=== PATIENT | female | born 1940 | race Two or more races ===

== ENCOUNTER → 2017-09-22 | Outpatient (CLI) | payer MEDICARE, OTHER ==
[2017-09-22 11:13] LABS: HEMATOCRIT 31.2 % (36-46); HEMOGLOBIN 10.3 g/dL (12.0-16.0)
[2017-09-22 11:45] LABS: % IRON SATURATION 11.2 % (22-44)
[2017-09-22 11:52] LABS: FOLATE SERUM 9.6 ng/mL (5.4-)
[2017-09-22 12:04] LABS: CALCIUM, TOTAL 10.4 mg/dL (8.8-10.5); CREATININE 4.67 mg/dL (0.60-1.30); POTASSIUM 4.8 mmol/L (3.5-5.1)
== END | disposition home or self-care (01) ==
LOC: LABPV 08:11
PROVIDERS: ATTEND Internal Medicine Nephrology
DX: I12.0 Hypertensive chronic kidney disease with stage 5 chronic kidney disease or end stage renal disease (principal); N18.5 Chronic kidney disease, stage 5
CPT/HCPCS: 82607; 82728; 82746; 83540; 83550; 84466; 85014; 85018

== ENCOUNTER → 2017-11-14 | Outpatient (CLI) | payer MEDICARE, OTHER ==
[2017-11-14 10:04] LABS: HEMATOCRIT 30.2 % (36-46); HEMOGLOBIN 10.1 g/dL (12.0-16.0)
[2017-11-14 10:15] LABS: CALCIUM, TOTAL 10.5 mg/dL (8.8-10.5); CREATININE 5.95 mg/dL (0.60-1.30); PHOSPHORUS 4.8 mg/dL (2.5-4.9); POTASSIUM 4.8 mmol/L (3.5-5.1)
== END | disposition home or self-care (01) ==
LOC: LABPV 08:19
PROVIDERS: ATTEND Internal Medicine Nephrology
DX: I12.0 Hypertensive chronic kidney disease with stage 5 chronic kidney disease or end stage renal disease (principal); N18.5 Chronic kidney disease, stage 5; E55.9 Vitamin D deficiency, unspecified
CPT/HCPCS: 82306; 84100; 85014; 85018

== ENCOUNTER 2017-11-25 15:07 | Inpatient (IN) | payer MEDICARE, OTHER ==
[~2017-11-25] VITALS: Ht 152.4 cm; Wt 52.8 kg
[2017-11-25 15:41] LABS: BASOPHILS % (AUTO) 0.7 % (0.0-2.0); EOSINOPHILS % (AUTO) 0.5 % (1.0-6.0); HEMATOCRIT 29.7 % (36-46); HEMOGLOBIN 10.2 g/dL (12.0-16.0); LYMPHOCYTES # (AUTO) 0.6 K/uL (1.0-4.8); LYMPHOCYTES % (AUTO) 6.4 % (22.0-44.0); MEAN CORPUSCULAR HEMOGLOBIN 26.5 pg (26.0-34.0); MEAN CORPUSCULAR HGB CONC 34.3 G/dL (31.0-37.0); MEAN CORPUSCULAR VOLUME 78 fL (80-100); MONOCYTES # (AUTO) 0.6 K/uL (0.1-1.0); MONOCYTES % (AUTO) 6.3 % (2.0-9.0); NEUTROPHILS # (AUTO) 8.2 K/uL (1.8-7.7); PLATELET COUNT (AUTO) 332 K/uL (150-450); RED BLOOD CELL COUNT(AUTO) 3.84 MIL/uL (4.00-5.20); RED CELL DISTRIBUTION WIDTH 17.7 % (11.5-14.5)
[2017-11-25 15:45] LABS: NEUTROPHILS % (AUTO) 86.1 % (40.0-70.0)
[2017-11-25 15:56] LABS: ALBUMIN 2.9 g/dL (3.4-5.0); BILIRUBIN,TOTAL 0.3 mg/dL (0.1-1.0); CREATININE 5.07 mg/dL (0.60-1.30); POTASSIUM 3.7 mmol/L (3.5-5.1); TOTAL PROTEIN, SERUM 7.6 g/dL (6.4-8.2)
[2017-11-25 16:25] LABS: PLATELET MORPHOLOGY COMMENT NORMAL
[2017-11-25] MEDS ORDERED: HEPARIN SODIUM,PORCINE 1,000 UNITS/ML VIAL IVP ONE (17:09)
[2017-11-25] MEDS ORDERED: CALCITONIN,SALMON,SYNTHETIC 200 UNITS/SPRAY 3.7 ML BOTTLE NASAL ONE (18:45)
[2017-11-25] MEDS ORDERED: SODIUM CHLORIDE 0.9% 1,000 ML IV ONE (18:45)
[2017-11-25] MEDS ORDERED: AMLO-511 PO (18:56)
[2017-11-25] MEDS ORDERED: VITAD1000 PO (18:56)
[2017-11-25] MEDS ORDERED: SODI650T PO (18:56)
[2017-11-25] MEDS ORDERED: PHOSLOC PO (18:56)
[2017-11-25] MEDS ORDERED: FERR-89 PO (18:56)
[2017-11-25] MEDS ORDERED: MAGNESIUM HYDROXIDE SUSPENSION 30 ML UDCUP PO PRN (20:00)
[2017-11-25] MEDS ORDERED: BISACODYL 10 MG RECTAL RECTAL SUPPOSITORY PR PRN (20:00)
[2017-11-25] MEDS ORDERED: IPRATROPIUM BROMIDE 0.5 MG/2.5 ML NEB SOLUTION NEB PRN (20:00)
[2017-11-25] MEDS ORDERED: ALBUTEROL SULFATE 2.5 MG/0.5 ML NEB SOLUTION NEB PRN (20:00)
[2017-11-25] MEDS ORDERED: ZOLPIDEM TARTRATE 5 MG TABLET PO PRN (20:00)
[2017-11-25] MEDS ORDERED: OxyCODONE HCL/ACETAMINOPHEN 5-325 MG TABLET PO PRN (20:00)
[2017-11-25 21:01] LABS: APPEARANCE,URINE CLEAR (CLEAR); BILIRUBIN,URINE NEGATIVE (NEGATIVE); GLUCOSE, URINE (UA) 100 mg/dL (NEGATIVE); KETONES,URINE NEGATIVE (NEGATIVE); LEUKOCYTE ESTERASE ,URINE NEGATIVE (NEGATIVE); NITRATE,URINE NEGATIVE (NEGATIVE); OCCULT BLOOD,URINE SMALL (NEGATIVE); PH,URINE 6.5 (5.0-8.0); PROTEIN,URINE SEE CONFIRM (NEGATIVE); UROBILINOGEN,URINE 0.2 mg/dL (<=1.0)
[2017-11-25 21:09] LABS: BACTERIA,URINE Rare /HPF (None Seen); SULFOSALICYLIC ACID,URINE 1+ (Negative); WBC,URINE 0-2 /HPF (0-5)
[2017-11-25 22:33] VITALS: BP 130/58
[2017-11-26 04:11] VITALS: BP 108/53
[2017-11-26 06:38] LABS: BASOPHILS % (AUTO) 0.9 % (0.0-2.0); EOSINOPHILS % (AUTO) 1.1 % (1.0-6.0); HEMATOCRIT 29.9 % (36-46); HEMOGLOBIN 10.4 g/dL (12.0-16.0); LYMPHOCYTES # (AUTO) 0.7 K/uL (1.0-4.8); LYMPHOCYTES % (AUTO) 8.5 % (22.0-44.0); MEAN CORPUSCULAR HEMOGLOBIN 26.6 pg (26.0-34.0); MEAN CORPUSCULAR HGB CONC 34.7 G/dL (31.0-37.0); MEAN CORPUSCULAR VOLUME 77 fL (80-100); MONOCYTES # (AUTO) 0.6 K/uL (0.1-1.0); MONOCYTES % (AUTO) 7.3 % (2.0-9.0); NEUTROPHILS # (AUTO) 6.8 K/uL (1.8-7.7); NEUTROPHILS % (AUTO) 82.2 % (40.0-70.0); PLATELET COUNT (AUTO) 318 K/uL (150-450); RED CELL DISTRIBUTION WIDTH 17.6 % (11.5-14.5)
[2017-11-26 07:33] LABS: ALBUMIN 2.7 g/dL (3.4-5.0); BILIRUBIN,TOTAL 0.3 mg/dL (0.1-1.0); CREATININE 5.08 mg/dL (0.60-1.30); MAGNESIUM 1.9 mg/dL (1.80-2.40); PHOSPHORUS 4.7 mg/dL (2.5-4.9); POTASSIUM 3.7 mmol/L (3.5-5.1); TOTAL PROTEIN, SERUM 7.2 g/dL (6.4-8.2)
[2017-11-26 08:18] LABS: CALCIUM, TOTAL 13.7 mg/dL (8.8-10.5)
[2017-11-26] MEDS: PANTOPRAZOLE SODIUM 40 MG DR TABLET PO SCH (09:08)
[2017-11-26 09:52] VITALS: BP 125/63
[2017-11-26] MEDS ORDERED: CALCITONIN,SALMON,SYNTHETIC 200 UNITS/SPRAY 3.7 ML BOTTLE NASAL ONE (11:30)
[2017-11-26 11:45] VITALS: BP 140/66
[2017-11-26] MEDS ORDERED: IOHEXOL 240 MG/ML 50 ML VIAL ONE (13:08)
[2017-11-26] MEDS ORDERED: LIDOCAINE HCL/PF 1% 30 ML VIAL ONE (13:09)
[2017-11-26] MEDS ORDERED: HEPARIN SODIUM 1000 UNITS/NS 500 ML ONE ×2 (13:09→15:03)
[2017-11-26 13:43] LABS: PROTHROMBIN TIME 10.2 SEC (9.4-11.6)
[2017-11-26] MEDS ORDERED: FentaNYL CITRATE-PF 100 MCG/2 ML VIAL ONE (14:52)
[2017-11-26] MEDS ORDERED: NALOXONE HCL 0.4 MG/ML VIAL ONE (14:53)
[2017-11-26] MEDS ORDERED: MIDAZOLAM HCL 2 MG/2 ML VIAL ONE (14:53)
[2017-11-26] MEDS ORDERED: HEPARIN SODIUM,PORCINE 1,000 UNITS/ML 10 ML VIAL ONE (14:53)
[2017-11-26] MEDS ORDERED: FLUMAZENIL 0.1 MG/ML 5 ML VIAL IVP ONE (14:53)
[2017-11-26] MEDS ORDERED: CeFAZolin 1 GM/DEXTROSE 0 ML IV ONE (15:12)
[2017-11-26 15:47] VITALS: BP 118/57
[2017-11-26] MEDS ORDERED: ALTEPLASE 2 MG/VIAL IVCATH ONE (16:30)
[2017-11-26 19:40] VITALS: BP 121/62
[2017-11-27 00:07] VITALS: BP 110/58
[2017-11-27 04:32] VITALS: BP 109/54
[2017-11-27 07:41] VITALS: BP 117/61
[2017-11-27] MEDS: PANTOPRAZOLE SODIUM 40 MG DR TABLET PO SCH (09:18)
[2017-11-27] MEDS: VITAMIN B COMP/VIT C/FOLIC ACID CAPSULE PO SCH (09:18)
[2017-11-27 09:34] LABS: BASOPHILS % (AUTO) 0.6 % (0.0-2.0); EOSINOPHILS % (AUTO) 0.9 % (1.0-6.0); HEMATOCRIT 27.4 % (36-46); HEMOGLOBIN 9.4 g/dL (12.0-16.0); LYMPHOCYTES # (AUTO) 0.4 K/uL (1.0-4.8); LYMPHOCYTES % (AUTO) 5.1 % (22.0-44.0); MEAN CORPUSCULAR HEMOGLOBIN 26.8 pg (26.0-34.0); MEAN CORPUSCULAR HGB CONC 34.2 G/dL (31.0-37.0); MEAN CORPUSCULAR VOLUME 78 fL (80-100); MONOCYTES # (AUTO) 0.5 K/uL (0.1-1.0); MONOCYTES % (AUTO) 6.6 % (2.0-9.0); PLATELET COUNT (AUTO) 283 K/uL (150-450); RED CELL DISTRIBUTION WIDTH 17.2 % (11.5-14.5)
[2017-11-27 09:37] LABS: NEUTROPHILS % (AUTO) 86.8 % (40.0-70.0)
[2017-11-27 09:42] LABS: CALCIUM, TOTAL 11.2 mg/dL (8.8-10.5); CREATININE 4.17 mg/dL (0.60-1.30)
[2017-11-27 09:48] LABS: ALBUMIN 2.4 g/dL (3.4-5.0); BILIRUBIN,TOTAL 0.2 mg/dL (0.1-1.0); TOTAL PROTEIN, SERUM 6.8 g/dL (6.4-8.2)
[2017-11-27] MEDS ORDERED: POTASSIUM CHLORIDE 20 MEQ ER TABLET PO ONE (10:00)
[2017-11-27 11:46] VITALS: BP 104/55
[2017-11-27 15:31] VITALS: BP 116/58
[2017-11-27 20:25] VITALS: BP 123/65
[2017-11-27] MEDS: ACETAMINOPHEN 325 MG TABLET PO PRN (23:42)
[2017-11-28] VITALS (7 sets, daily range): BP systolic 101–125; BP diastolic 52–96
[2017-11-28] MEDS ORDERED: SODIUM CHLORIDE 0.9% 2,000 ML IV ONE (06:50)
[2017-11-28 06:55] LABS: CALCIUM, TOTAL 11.3 mg/dL (8.8-10.5); CREATININE 4.82 mg/dL (0.60-1.30); POTASSIUM 4.4 mmol/L (3.5-5.1)
[2017-11-28] MEDS: VITAMIN B COMP/VIT C/FOLIC ACID CAPSULE PO SCH (10:20)
[2017-11-28] MEDS: PANTOPRAZOLE SODIUM 40 MG DR TABLET PO SCH (10:20)
[2017-11-28] MEDS: ACETAMINOPHEN 325 MG TABLET PO PRN (20:16)
[2017-11-29 05:11] VITALS: BP 106/51
[2017-11-29 07:44] VITALS: BP 116/57
[2017-11-29] MEDS: VITAMIN B COMP/VIT C/FOLIC ACID CAPSULE PO SCH (08:00)
[2017-11-29] MEDS: PANTOPRAZOLE SODIUM 40 MG DR TABLET PO SCH (08:00)
[2017-11-29] MEDS ORDERED: EPOETIN ALFA 10,000 UNITS/ML 2 ML VIAL SQ SCH (09:00)
[2017-11-29 10:10] LABS: CALCIUM, TOTAL 10.7 mg/dL (8.8-10.5); CREATININE 3.88 mg/dL (0.60-1.30); POTASSIUM 3.7 mmol/L (3.5-5.1)
[2017-11-29] MEDS ORDERED: SODIUM CHLORIDE 0.9% 1,000 ML IV ONE (10:34)
[2017-11-29 11:49] VITALS: BP 111/63
[2017-11-29 16:36] VITALS: BP 103/54
[2017-11-29 19:52] VITALS: BP 115/54
[2017-11-29 23:44] VITALS: BP 112/58
[2017-11-30 04:32] VITALS: BP 105/55
[2017-11-30 06:57] VITALS: BP 101/57
[2017-11-30] MEDS: VITAMIN B COMP/VIT C/FOLIC ACID CAPSULE PO SCH (08:19)
[2017-11-30] MEDS: PANTOPRAZOLE SODIUM 40 MG DR TABLET PO SCH (08:19)
[2017-11-30 11:24] VITALS: BP 113/53
[2017-11-30 15:31] VITALS: BP 118/57
[2017-11-30 19:46] VITALS: BP 103/53
[2017-12-01 00:06] VITALS: BP 113/58
[2017-12-01 04:10] VITALS: BP 111/55
[2017-12-01 06:59] LABS: CREATININE 4.85 mg/dL (0.60-1.30); POTASSIUM 4.5 mmol/L (3.5-5.1)
[2017-12-01 07:35] VITALS: BP 97/52
[2017-12-01] MEDS: VITAMIN B COMP/VIT C/FOLIC ACID CAPSULE PO SCH (09:57)
[2017-12-01] MEDS: PANTOPRAZOLE SODIUM 40 MG DR TABLET PO SCH (09:57)
[2017-12-01 11:20] VITALS: BP 112/57
[2017-12-01 15:46] VITALS: BP 123/59
== END 2017-12-01 17:40 | disposition home or self-care (01) | DRG 640 ==
LOC: EMS 15:08 → 5N 20:53
PROVIDERS: ADMIT Internal Medicine; ATTEND Internal Medicine
PROC: 5A1D70Z Performance of Urinary Filtration, Intermittent, Less than 6 Hours Per Day (ICD-10-PCS; principal; 2017-11-26)
PROC: 5A1D70Z Performance of Urinary Filtration, Intermittent, Less than 6 Hours Per Day (ICD-10-PCS; 2017-11-28)
PROC: 5A1D70Z Performance of Urinary Filtration, Intermittent, Less than 6 Hours Per Day (ICD-10-PCS; 2017-11-29)
DX: E83.52 Hypercalcemia (principal); N18.6 End stage renal disease; E87.1 Hypo-osmolality and hyponatremia; I12.0 Hypertensive chronic kidney disease with stage 5 chronic kidney disease or end stage renal disease; R10.9 Unspecified abdominal pain; D63.1 Anemia in chronic kidney disease; E11.22 Type 2 diabetes mellitus with diabetic chronic kidney disease; E78.5 Hyperlipidemia, unspecified; R94.8 Abnormal results of function studies of other organs and systems; Z83.3 Family history of diabetes mellitus; Z82.49 Family history of ischemic heart disease and other diseases of the circulatory system; Z99.2 Dependence on renal dialysis; Z84.1 Family history of disorders of kidney and ureter
CPT/HCPCS: 74176; 82306; 83735; 83970; 84100; 87081; 87340; 93005; 96360; 99285; J0690; J0885; J1644; J2250; J2310; J2997; J3010; J3490; J7030; Q9966

== ENCOUNTER → 2017-12-03 | Outpatient (CLI) | payer MEDICARE, OTHER ==
[~2017-12-03] MED LIST: AMLO-511 PO; FERR-89 PO; PHOSLOC PO; SODI650T PO; VITAD1000 PO
== END | disposition home or self-care (01) ==
LOC: RADPV 08:42
PROVIDERS: ATTEND Internal Medicine Nephrology
DX: I70.0 Atherosclerosis of aorta (principal); M48.54XA Collapsed vertebra, not elsewhere classified, thoracic region, initial encounter for fracture; I12.0 Hypertensive chronic kidney disease with stage 5 chronic kidney disease or end stage renal disease; N18.6 End stage renal disease; Z99.2 Dependence on renal dialysis

== ENCOUNTER → 2017-12-08 | Outpatient (CLI) | payer MEDICARE, OTHER ==
[~2017-12-08] MED LIST changes: +IOVERSOL 350 MG/ML 100 ML VIAL ONE
[2017-12-08 10:53] LABS: HEMOGLOBIN 7.8 g/dL (12.0-16.0)
[2017-12-08 11:20] LABS: CREATININE 4.4 mg/dL (0.60-1.30); POTASSIUM 4.3 mmol/L (3.5-5.1)
[2017-12-08 11:42] LABS: CALCIUM, TOTAL 11.9 mg/dL (8.8-10.5)
== END | disposition home or self-care (01) ==
LOC: LABPV 08:43
PROVIDERS: ATTEND Internal Medicine Nephrology
DX: I12.9 Hypertensive chronic kidney disease with stage 1 through stage 4 chronic kidney disease, or unspecified chronic kidney disease (principal); N18.5 Chronic kidney disease, stage 5; E11.22 Type 2 diabetes mellitus with diabetic chronic kidney disease
CPT/HCPCS: 85014; 85018

== ENCOUNTER 2017-12-09 16:55 | Inpatient (IN) | payer MEDICARE, OTHER ==
[~2017-12-09] VITALS: Ht 157.5 cm; Wt 56.8 kg
[~2017-12-09 16:55] MED LIST changes: -IOVERSOL 350 MG/ML 100 ML VIAL ONE
[2017-12-09] MEDS ORDERED: SODIUM CHLORIDE 0.9% 500 ML IV ONE (17:30)
[2017-12-09 18:01] LABS: HEMATOCRIT 22.2 % (36-46); HEMOGLOBIN 7.4 g/dL (12.0-16.0); MEAN CORPUSCULAR HEMOGLOBIN 26.4 pg (26.0-34.0); MEAN CORPUSCULAR HGB CONC 33.4 G/dL (31.0-37.0); MEAN CORPUSCULAR VOLUME 79 fL (80-100); PLATELET COUNT (AUTO) 292 K/uL (150-450); RED BLOOD CELL COUNT(AUTO) 2.81 MIL/uL (4.00-5.20); RED CELL DISTRIBUTION WIDTH 17.3 % (11.5-14.5)
[2017-12-09 18:10] LABS: ALANINE AMINOTRANSFERASE 12 U/L (12-78); ALBUMIN 2.4 g/dL (3.4-5.0); ALKALINE PHOSPHATASE 79 U/L (46-116); ANION GAP 11 mmol/L (8-16); ASPARTATE AMINOTRANSFERASE 11 U/L (15-37); BILIRUBIN,TOTAL 0.3 mg/dL (0.1-1.0); CARBON DIOXIDE 25 mmol/L (22-29); CHLORIDE 97 mmol/L (98-107); CREATININE 5.66 mg/dL (0.60-1.30); GLOMERULAR FILTR. RATE CALC 7 mL/min (>60); GLUCOSE,RANDOM 129 mg/dL (70-110); POTASSIUM 4.2 mmol/L (3.5-5.1); SODIUM SERUM 133 mmol/L (136-145); TOTAL PROTEIN, SERUM 6.9 g/dL (6.4-8.2); UREA NITROGEN, BLOOD 48 mg/dL (7-18)
[2017-12-09 18:15] LABS: CALCIUM, TOTAL 12.4 mg/dL (8.8-10.5)
[2017-12-09 18:21] LABS: LACTIC ACID 2.4 mmol/L (0.4-2.0)
[2017-12-09 18:33] LABS: BAND NEUTROPHILS % (MANUAL) 41 % (0-5); EOSINOPHILS % (MANUAL) 1 % (1-6); LYMPHOCYTES % (MANUAL) 3 % (22-44); MONOCYTES % (MANUAL) 3 % (2-9); SEGMENTED NEUTROPHILS % 52 % (40-70)
[2017-12-09 18:51] LABS: APPEARANCE,URINE CLOUDY (CLEAR); BILIRUBIN,URINE NEGATIVE (NEGATIVE); GLUCOSE, URINE (UA) 100 mg/dL (NEGATIVE); KETONES,URINE NEGATIVE (NEGATIVE); LEUKOCYTE ESTERASE ,URINE NEGATIVE (NEGATIVE); NITRATE,URINE NEGATIVE (NEGATIVE); OCCULT BLOOD,URINE SMALL (NEGATIVE); PH,URINE 6.5 (5.0-8.0); PROTEIN,URINE SEE CONFIRM (NEGATIVE); UROBILINOGEN,URINE 0.2 mg/dL (<=1.0)
[2017-12-09 19:06] LABS: SULFOSALICYLIC ACID,URINE 3+ (Negative)
[2017-12-09 19:08] LABS: BACTERIA,URINE Few /HPF (None Seen)
[2017-12-09 19:09] LABS: AMORPHOUS SEDIMENT,UR Few /LPF (None Seen); COARSE GRANULAR CASTS,URINE 0-2 /LPF (None Seen); SQUAMOUS EPITHELIAL CELL,UR None Seen /LPF (None Seen)
[2017-12-09] MEDS ORDERED: VANCOMYCIN HCL 1 GM/D5% WATER 200 ML IV ONE (19:45)
[2017-12-09] MEDS ORDERED: PIPERACILLIN/TAZO 3.375 GM/D5W 50 ML IV ONE (19:45)
[2017-12-09] MEDS ORDERED: ACETAMINOPHEN 325 MG TABLET PO PRN ×2 (20:00→20:45)
[2017-12-09] MEDS ORDERED: ONDANSETRON HCL 4 MG/2 ML VIAL IVP PRN ×2 (20:00→20:45)
[2017-12-09] MEDS ORDERED: ALBUTEROL SULFATE 2.5 MG/0.5 ML NEB SOLUTION NEB PRN (20:45)
[2017-12-09] MEDS ORDERED: BISACODYL 10 MG RECTAL RECTAL SUPPOSITORY PR PRN (20:45)
[2017-12-09] MEDS ORDERED: ZOLPIDEM TARTRATE 5 MG TABLET PO PRN (20:45)
[2017-12-09] MEDS ORDERED: MAGNESIUM HYDROXIDE SUSPENSION 30 ML UDCUP PO PRN (20:45)
[2017-12-09] MEDS ORDERED: IPRATROPIUM BROMIDE 0.5 MG/2.5 ML NEB SOLUTION NEB PRN (20:45)
[2017-12-09] MEDS ORDERED: MORPHINE SULFATE 2 MG/ML SYRINGE IVP PRN (20:45)
[2017-12-09] MEDS ORDERED: OxyCODONE HCL/ACETAMINOPHEN 5-325 MG TABLET PO PRN (20:45)
[2017-12-09] MEDS ORDERED: SODIUM CHLORIDE 0.9% 100 ML ONE (21:10)
[2017-12-09 21:14] VITALS: BP 105/53
[2017-12-09] MEDS ORDERED: SODIUM CHLORIDE 0.9% 1,000 ML IV ONE (21:15)
[2017-12-09] MEDS ORDERED: VANCOMYCIN HCL 1 GM/D5% WATER 200 ML IV PRN (21:15)
[2017-12-09] MEDS ORDERED: IOVERSOL 320 MG/ML 100 ML VIAL ONE (21:26)
[2017-12-09] MEDS ORDERED: BARIUM SULFATE 0.1% SUSPENSION 450 ML BOTTLE ONE (21:27)
[2017-12-10 00:10] VITALS: BP 94/50
[2017-12-10 04:00] VITALS: BP 97/50
[2017-12-10 06:28] LABS: BASOPHILS % (AUTO) 0.2 % (0.0-2.0); EOSINOPHILS % (AUTO) 0.3 % (1.0-6.0); LYMPHOCYTES # (AUTO) 0.8 K/uL (1.0-4.8); MEAN CORPUSCULAR HEMOGLOBIN 26.5 pg (26.0-34.0); MEAN CORPUSCULAR HGB CONC 33.7 G/dL (31.0-37.0); MEAN CORPUSCULAR VOLUME 79 fL (80-100); MONOCYTES # (AUTO) 0.6 K/uL (0.1-1.0); MONOCYTES % (AUTO) 4.4 % (2.0-9.0); NEUTROPHILS # (AUTO) 11.5 K/uL (1.8-7.7); PLATELET COUNT (AUTO) 238 K/uL (150-450); RED BLOOD CELL COUNT(AUTO) 2.33 MIL/uL (4.00-5.20); RED CELL DISTRIBUTION WIDTH 17.6 % (11.5-14.5)
[2017-12-10 06:42] LABS: ALBUMIN 1.9 g/dL (3.4-5.0); BILIRUBIN,TOTAL 0.3 mg/dL (0.1-1.0); CALCIUM, TOTAL 10.5 mg/dL (8.8-10.5); CREATININE 5.35 mg/dL (0.60-1.30); PHOSPHORUS 5.3 mg/dL (2.5-4.9); POTASSIUM 4.4 mmol/L (3.5-5.1); TOTAL PROTEIN, SERUM 5.6 g/dL (6.4-8.2)
[2017-12-10 06:58] LABS: HEMATOCRIT 18.4 % (36-46); HEMOGLOBIN 6.2 g/dL (12.0-16.0); NEUTROPHILS % (AUTO) 89.1 % (40.0-70.0)
[2017-12-10] MEDS ORDERED: VANCOMYCIN HCL 1 GM/D5% WATER 200 ML IV SCH (07:00)
[2017-12-10 07:32] VITALS: BP 94/48
[2017-12-10] MEDS: VITAMIN B COMP/VIT C/FOLIC ACID CAPSULE PO SCH (07:55)
[2017-12-10] MEDS: PANTOPRAZOLE SODIUM 40 MG DR TABLET PO SCH (07:56)
[2017-12-10] MEDS ORDERED: VITAMIN B COMP/VIT C/FOLIC ACID CAPSULE PO SCH (09:00)
[2017-12-10 11:41] VITALS: BP 91/47
[2017-12-10 19:48] VITALS: BP 116/57
[2017-12-10 23:36] VITALS: BP 108/54
[2017-12-11 03:43] VITALS: BP 103/52
[2017-12-11 06:27] LABS: BASOPHILS % (AUTO) 0.4 % (0.0-2.0); HEMATOCRIT 26.7 % (36-46); HEMOGLOBIN 9.6 g/dL (12.0-16.0); LYMPHOCYTES # (AUTO) 0.5 K/uL (1.0-4.8); LYMPHOCYTES % (AUTO) 5.5 % (22.0-44.0); MEAN CORPUSCULAR HGB CONC 35.8 G/dL (31.0-37.0); MEAN CORPUSCULAR VOLUME 81 fL (80-100); MONOCYTES # (AUTO) 0.6 K/uL (0.1-1.0); MONOCYTES % (AUTO) 6.5 % (2.0-9.0); NEUTROPHILS # (AUTO) 8.7 K/uL (1.8-7.7); PLATELET COUNT (AUTO) 226 K/uL (150-450); RED BLOOD CELL COUNT(AUTO) 3.29 MIL/uL (4.00-5.20); RED CELL DISTRIBUTION WIDTH 16.2 % (11.5-14.5)
[2017-12-11 06:43] LABS: NEUTROPHILS % (AUTO) 86.6 % (40.0-70.0)
[2017-12-11 07:38] VITALS: BP 109/60
[2017-12-11 08:12] LABS: CALCIUM, TOTAL 9.3 mg/dL (8.8-10.5); CREATININE 2.86 mg/dL (0.60-1.30); MAGNESIUM 1.7 mg/dL (1.80-2.40); PHOSPHORUS 2.9 mg/dL (2.5-4.9); POTASSIUM 3.6 mmol/L (3.5-5.1); VANCOMYCIN,RANDOM 12.5 mcg/mL (25.0-50.0)
[2017-12-11 08:18] LABS: % IRON SATURATION 12.1 % (22-44)
[2017-12-11] MEDS: VITAMIN B COMP/VIT C/FOLIC ACID CAPSULE PO SCH (08:58)
[2017-12-11] MEDS: EPOETIN ALFA 10,000 UNITS/ML VIAL SQ SCH (08:59)
[2017-12-11] MEDS: PANTOPRAZOLE SODIUM 40 MG DR TABLET PO SCH (08:59)
[2017-12-11] MEDS ORDERED: VANCOMYCIN HCL 1 GM/D5% WATER 200 ML IV ONE (09:00)
[2017-12-11 11:44] VITALS: BP 103/55
[2017-12-11 13:08] LABS: ALBUMIN URINE (ELP) 24.4 %
[2017-12-11] MEDS: SOD FERRIC GLUC COMPLX/SUCROSE 125 MG in SODIUM CHLORIDE 0.9% 100 ML IV SCH (13:21)
[2017-12-11 15:21] VITALS: BP 111/57
[2017-12-11 19:56] VITALS: BP 121/62
[2017-12-12 00:10] VITALS: BP 102/61
[2017-12-12 04:55] VITALS: BP 120/56
[2017-12-12 07:36] VITALS: BP 114/59
[2017-12-12 08:08] LABS: IGM (IMMUNOFIXATION) 54 mg/dL (26-217)
[2017-12-12] MEDS ORDERED: SODIUM CHLORIDE 0.9% 2,000 ML IV ONE (08:41)
[2017-12-12] MEDS: PANTOPRAZOLE SODIUM 40 MG DR TABLET PO SCH (09:00)
[2017-12-12] MEDS: VITAMIN B COMP/VIT C/FOLIC ACID CAPSULE PO SCH (09:00)
[2017-12-12 11:18] VITALS: BP 104/51
[2017-12-12] MEDS: SOD FERRIC GLUC COMPLX/SUCROSE 125 MG in SODIUM CHLORIDE 0.9% 100 ML IV SCH (12:49)
[2017-12-12 15:23] VITALS: BP 128/60
[2017-12-12 19:41] VITALS: BP 117/59
[2017-12-13 00:16] VITALS: BP 112/56
[2017-12-13 04:29] VITALS: BP 118/58
[2017-12-13 05:59] LABS: HEMATOCRIT 28.2 % (36-46); HEMOGLOBIN 9.7 g/dL (12.0-16.0); LYMPHOCYTES # (AUTO) 0.5 K/uL (1.0-4.8); LYMPHOCYTES % (AUTO) 5.7 % (22.0-44.0); MEAN CORPUSCULAR HEMOGLOBIN 28.2 pg (26.0-34.0); MEAN CORPUSCULAR HGB CONC 34.4 G/dL (31.0-37.0); MEAN CORPUSCULAR VOLUME 82 fL (80-100); MONOCYTES # (AUTO) 0.6 K/uL (0.1-1.0); NEUTROPHILS # (AUTO) 7.2 K/uL (1.8-7.7); NEUTROPHILS % (AUTO) 84.3 % (40.0-70.0); PLATELET COUNT (AUTO) 244 K/uL (150-450); RED BLOOD CELL COUNT(AUTO) 3.45 MIL/uL (4.00-5.20); RED CELL DISTRIBUTION WIDTH 16.9 % (11.5-14.5)
[2017-12-13 06:28] LABS: ALBUMIN 1.9 g/dL (3.4-5.0); BILIRUBIN,TOTAL 0.2 mg/dL (0.1-1.0); CALCIUM, TOTAL 9.5 mg/dL (8.8-10.5); CREATININE 2.97 mg/dL (0.60-1.30); MAGNESIUM 1.6 mg/dL (1.80-2.40); PHOSPHORUS 2.6 mg/dL (2.5-4.9); POTASSIUM 3.5 mmol/L (3.5-5.1); TOTAL PROTEIN, SERUM 5.9 g/dL (6.4-8.2)
[2017-12-13 07:51] VITALS: BP 102/54
[2017-12-13] MEDS: VITAMIN B COMP/VIT C/FOLIC ACID CAPSULE PO SCH (08:43)
[2017-12-13] MEDS: PANTOPRAZOLE SODIUM 40 MG DR TABLET PO SCH (08:43)
[2017-12-13] MEDS: EPOETIN ALFA 10,000 UNITS/ML VIAL SQ SCH (08:43)
[2017-12-13 10:55] VITALS: BP 100/52
[2017-12-13] MEDS: SOD FERRIC GLUC COMPLX/SUCROSE 125 MG in SODIUM CHLORIDE 0.9% 100 ML IV SCH (12:40)
== END 2017-12-13 16:10 | disposition home or self-care (01) | DRG 871 ==
LOC: EMS 16:55 → 5S 19:55
PROVIDERS: ADMIT Internal Medicine; ATTEND Internal Medicine
PROC: 30233N1 Transfusion of Nonautologous Red Blood Cells into Peripheral Vein, Percutaneous Approach (ICD-10-PCS; principal; 2017-12-10)
PROC: 5A1D70Z Performance of Urinary Filtration, Intermittent, Less than 6 Hours Per Day (ICD-10-PCS; 2017-12-10)
PROC: 5A1D70Z Performance of Urinary Filtration, Intermittent, Less than 6 Hours Per Day (ICD-10-PCS; 2017-12-12)
DX: A41.9 Sepsis, unspecified organism (principal); N18.6 End stage renal disease; E87.1 Hypo-osmolality and hyponatremia; I12.0 Hypertensive chronic kidney disease with stage 5 chronic kidney disease or end stage renal disease; Z99.2 Dependence on renal dialysis; E83.52 Hypercalcemia; D63.1 Anemia in chronic kidney disease; M19.90 Unspecified osteoarthritis, unspecified site; E83.39 Other disorders of phosphorus metabolism; E78.5 Hyperlipidemia, unspecified; D75.89 Other specified diseases of blood and blood-forming organs
CPT/HCPCS: 36430; 51702; 71260; 72193; 74160; 82271; 82784; 83540; 83550; 83605; 83735; 83970; 84100; 84155; 84156; 84165; 84166; 86334; 86850; 86900; 86901; 86920; 87040; 87081; 87340; 93005; 96365; 99291; J0885; J2543; J2916; J3370; J7030; J7040; J7050; P9016

== ENCOUNTER → 2018-03-03 | Outpatient (CLI) | payer MEDICARE, OTHER ==
[~2018-03-03] MED LIST changes: +CALC25 PO; -FERR-89 PO; +FOLI1CAP2 PO; +NEBI5 PO; +PANT40TA25 PO; -PHOSLOC PO; +SEVE800PW PO; -SODI650T PO; -VITAD1000 PO; +[UNRECOGNIZED DRUG - CODE] PO
[2018-03-03 15:50] VITALS: BP 86/46
== END | disposition home or self-care (01) ==
LOC: SRCNTR 15:34
PROVIDERS: ATTEND Internal Medicine Critical Care Medicine
DX: I12.0 Hypertensive chronic kidney disease with stage 5 chronic kidney disease or end stage renal disease (principal); N18.6 End stage renal disease; R91.8 Other nonspecific abnormal finding of lung field; Z99.2 Dependence on renal dialysis
CPT/HCPCS: G0463

== ENCOUNTER 2018-06-08 22:39 | Emergency (ER) | payer MEDICARE, OTHER ==
[~2018-06-08] VITALS: Ht 154.9 cm; Wt 57.3 kg
[~2018-06-08 22:39] MED LIST changes: +SEVE0.8P6 PO; -SEVE800PW PO
[2018-06-08 23:20] LABS: GLUCOSE,POINT OF CARE 112 MG/DL (70-110)
[2018-06-08] MEDS ORDERED: RIFA300 PO (23:22)
[2018-06-08] MEDS ORDERED: PYRA500 PO (23:22)
[2018-06-08] MEDS ORDERED: ETHA400T8 PO (23:22)
[2018-06-08] MEDS ORDERED: FOLI1CAP2 PO (23:22)
[2018-06-08] MEDS ORDERED: MIDO5TAB23 PO (23:22)
[2018-06-08] MEDS ORDERED: MEGE400O20 PO (23:22)
[2018-06-08] MEDS ORDERED: ISON300 PO (23:22)
[2018-06-09 00:31] LABS: BASOPHILS % (AUTO) 0.9 % (0.0-2.0); EOSINOPHILS % (AUTO) 0 % (1.0-6.0); HEMATOCRIT 29.1 % (36-46); HEMOGLOBIN 9.2 g/dL (12.0-16.0); LYMPHOCYTES # (AUTO) 0.4 K/uL (1.0-4.8); LYMPHOCYTES % (AUTO) 9.8 % (22.0-44.0); MEAN CORPUSCULAR HEMOGLOBIN 28.2 pg (26.0-34.0); MEAN CORPUSCULAR HGB CONC 31.6 G/dL (31.0-37.0); MEAN CORPUSCULAR VOLUME 89 fL (80-100); MONOCYTES # (AUTO) 0.3 K/uL (0.1-1.0); MONOCYTES % (AUTO) 9.3 % (2.0-9.0); NEUTROPHILS # (AUTO) 2.9 K/uL (1.8-7.7); RED BLOOD CELL COUNT(AUTO) 3.26 MIL/uL (4.00-5.20); RED CELL DISTRIBUTION WIDTH 18.4 % (11.5-14.5)
[2018-06-09 00:40] LABS: CREATININE 2.26 mg/dL (0.60-1.30); POTASSIUM 3.7 mmol/L (3.5-5.1)
[2018-06-09 00:46] LABS: ALBUMIN 1.1 g/dL (3.4-5.0); BILIRUBIN,TOTAL 0.6 mg/dL (0.1-1.0); TOTAL PROTEIN, SERUM 6.3 g/dL (6.4-8.2)
[2018-06-09 00:48] LABS: PLATELET COUNT (AUTO) 97 K/uL (150-450); PLATELET MORPHOLOGY COMMENT GIANT PLTS PRESENT
[2018-06-09] MEDS ORDERED: SODIUM CHLORIDE 0.9% 1,000 ML IV ONE (01:45)
[2018-06-09 06:03] VITALS: BP 104/55
== END 2018-06-09 07:09 | disposition home or self-care (01) ==
LOC: EMS 22:41
DX: I95.3 Hypotension of hemodialysis (principal); N18.6 End stage renal disease; Z99.2 Dependence on renal dialysis
CPT/HCPCS: 96360; 96361

== ENCOUNTER 2019-02-25 11:18 | Inpatient (IN) | payer MEDICARE, OTHER ==
[~2019-02-25] VITALS: Ht 147.3 cm; Wt 53.0 kg
[~2019-02-25 11:18] MED LIST changes: -AMLO-511 PO; +BISA-151 PO; -CALC25 PO; +CEFO1I IM; +FAMO20 PO; +MIDO2.5T19 PO; -NEBI5 PO; -PANT40TA25 PO; +POLY238P2 PO; -[UNRECOGNIZED DRUG - CODE] PO
[2019-02-25 12:38] LABS: BASOPHILS % (AUTO) 0.2 % (0.0-2.0); EOSINOPHILS % (AUTO) 0.4 % (1.0-6.0); HEMATOCRIT 25.6 % (36-46); HEMOGLOBIN 8.8 g/dL (12.0-16.0); LYMPHOCYTES # (AUTO) 0.6 K/uL (1.0-4.8); LYMPHOCYTES % (AUTO) 5.7 % (22.0-44.0); MEAN CORPUSCULAR HEMOGLOBIN 30.8 pg (26.0-34.0); MEAN CORPUSCULAR HGB CONC 34.5 G/dL (31.0-37.0); MEAN CORPUSCULAR VOLUME 89 fL (80-100); MONOCYTES % (AUTO) 9.4 % (2.0-9.0); NEUTROPHILS # (AUTO) 9.3 K/uL (1.8-7.7); NEUTROPHILS % (AUTO) 84.3 % (40.0-70.0); PLATELET COUNT (AUTO) 202 K/uL (150-450); RED BLOOD CELL COUNT(AUTO) 2.87 MIL/uL (4.00-5.20); RED CELL DISTRIBUTION WIDTH 16.3 % (11.5-14.5)
[2019-02-25 12:45] LABS: CALCIUM, TOTAL 8.7 mg/dL (8.8-10.5); CREATININE 2.79 mg/dL (0.60-1.30); POTASSIUM 3.7 mmol/L (3.5-5.1)
[2019-02-25 12:48] LABS: ALBUMIN 1.3 g/dL (3.4-5.0); BILIRUBIN,TOTAL 0.4 mg/dL (0.1-1.0); TOTAL PROTEIN, SERUM 8.3 g/dL (6.4-8.2)
[2019-02-25 12:53] LABS: INR 1.3 (0.9-1.1); PROTHROMBIN TIME 12.7 SEC (9.4-11.6)
[2019-02-25 12:55] LABS: LACTIC ACID 1.7 mmol/L (0.4-2.0)
[2019-02-25 16:06] LABS: SPECIMENTYPE,BODY FLUID ASCITES
[2019-02-25 17:16] LABS: APPEARANCE,UNSPUN,BODY FLUID TURBID (CLEAR); COLOR,BODY FLUID LT YELLOW (LT YELLOW); TOTAL VOLUME,BODY FLUID 39 mL
[2019-02-25 17:18] LABS: APPEARANCE,SPUN,BODY FLUID CLOUDY (CLEAR); BASOPHILS,BODY FLUID 0 %; EOSINOPHILS,BF (ANAL) 0 %; LYMPHOCYTES,BODY FLUID 0 %; MONOCYTES,BODY FLUID 5 %; NEUTROPHILS,BODY FLUID 95 %; WBC, BODY FLUID 909 /cu. mm.
[2019-02-25] MEDS ORDERED: ALBUMIN HUMAN 25%-25GM/100ML 100 ML IV ONE (17:30)
[2019-02-25] MEDS ORDERED: CEFUROXIME SODIUM IV ONE (17:30)
[2019-02-25] MEDS ORDERED: WATER IV ONE (17:30)
[2019-02-25] MEDS ORDERED: DEXTROSE 5% IV ONE (17:30)
[2019-02-25] MEDS ORDERED: CefoTEtan DISOD 2 GM/DEXTROSE 50 ML IV ONE (17:30)
[2019-02-25] MEDS ORDERED: ONDANSETRON HCL 4 MG/2 ML VIAL IVP PRN ×2 (18:15→21:30)
[2019-02-25] MEDS ORDERED: ACETAMINOPHEN 325 MG TABLET PO PRN ×2 (18:15→21:30)
[2019-02-25 20:43] VITALS: BP 115/68
[2019-02-25] MEDS ORDERED: 0.9% SODIUM CHLORIDE 10 ML SYRINGE IVP PRN (21:30)
[2019-02-25] MEDS ORDERED: ZOLPIDEM TARTRATE 5 MG TABLET PO PRN (21:30)
[2019-02-25] MEDS ORDERED: SODIUM CHLORIDE 0.9% 250 ML IV ONE (22:24)
[2019-02-25] MEDS: ALBUMIN HUMAN 25%-12.5GM/50ML 50 ML IV SCH (22:28)
[2019-02-26] VITALS (7 sets, daily range): BP systolic 91–107; BP diastolic 39–58
[2019-02-26] MEDS ORDERED: CefTRIAXone SODIUM 2 GM in DEXTROSE 5%-WATER 50 ML IV SCH ×2
[2019-02-26] MEDS: ALBUMIN HUMAN 25%-12.5GM/50ML 50 ML IV SCH ×4 (01:40→12:42)
[2019-02-26 05:50] LABS: BASOPHILS % (AUTO) 0.6 % (0.0-2.0); EOSINOPHILS % (AUTO) 0.5 % (1.0-6.0); HEMATOCRIT 21.1 % (36-46); HEMOGLOBIN 7.6 g/dL (12.0-16.0); LYMPHOCYTES # (AUTO) 0.7 K/uL (1.0-4.8); MEAN CORPUSCULAR HEMOGLOBIN 31.7 pg (26.0-34.0); MEAN CORPUSCULAR HGB CONC 35.9 G/dL (31.0-37.0); MEAN CORPUSCULAR VOLUME 88 fL (80-100); MONOCYTES # (AUTO) 0.7 K/uL (0.1-1.0); MONOCYTES % (AUTO) 8.5 % (2.0-9.0); NEUTROPHILS # (AUTO) 6.8 K/uL (1.8-7.7); NEUTROPHILS % (AUTO) 82.4 % (40.0-70.0); PLATELET COUNT (AUTO) 169 K/uL (150-450); RED BLOOD CELL COUNT(AUTO) 2.38 MIL/uL (4.00-5.20); RED CELL DISTRIBUTION WIDTH 16.7 % (11.5-14.5)
[2019-02-26 06:01] LABS: CALCIUM, TOTAL 8.4 mg/dL (8.8-10.5); CREATININE 3.35 mg/dL (0.60-1.30); MAGNESIUM 2.3 mg/dL (1.80-2.40); POTASSIUM 3.7 mmol/L (3.5-5.1)
[2019-02-26] MEDS: SEVELAMER CARBONATE 800 MG POWDER PACKET PO SCH ×3 (08:31→17:22)
[2019-02-26] MEDS: DOCUSATE SODIUM 100 MG CAPSULE PO SCH ×2 (08:31→21:00)
[2019-02-26] MEDS: MIDODRINE HCL 2.5 MG TABLET PO SCH (08:31)
[2019-02-26] MEDS: BISACODYL 5 MG EC TABLET PO SCH (08:31)
[2019-02-26] MEDS: VITAMIN B COMP/VIT C/FOLIC ACID CAPSULE PO SCH (08:32)
[2019-02-26] MEDS ORDERED: B CO1CAP6 PO (12:58)
[2019-02-26] MEDS ORDERED: *CLINICAL-LEVOFLOXACIN IVPB DOSING CLINICAL ONE (15:45)
[2019-02-26] MEDS ORDERED: *CLINICAL-RX DOSING [ENTER DRUG IN COMMENTS] CLINICAL ONE (15:45)
[2019-02-26] MEDS ORDERED: MANNITOL 25%-12.5 GM/50 ML VIAL IVP ONE (16:04)
[2019-02-26] MEDS ORDERED: CefoTEtan DISOD 1 GM/DEXTROSE 50 ML IV ONE (22:00)
[2019-02-26] MEDS ORDERED: SODIUM CHLORIDE 0.9% 100 ML ONE (22:23)
[2019-02-27] VITALS (16 sets, daily range): BP systolic 106–124; BP diastolic 45–64
[2019-02-27] MEDS: LEVOFLOXACIN 500 MG/D5% WATER 100 ML IV SCH
[2019-02-27] MEDS: BISACODYL 5 MG EC TABLET PO SCH ×3 (00:01→20:46)
[2019-02-27] MEDS: ALBUMIN HUMAN 25%-12.5GM/50ML 50 ML IV SCH ×4 (00:36→20:41)
[2019-02-27] MEDS: DOCUSATE SODIUM 100 MG CAPSULE PO SCH ×2 (07:26→20:39)
[2019-02-27] MEDS: SEVELAMER CARBONATE 800 MG POWDER PACKET PO SCH ×3 (08:31→17:47)
[2019-02-27] MEDS: VITAMIN B COMP/VIT C/FOLIC ACID CAPSULE PO SCH (08:31)
[2019-02-27] MEDS: -POST HEMODIALYSIS NOTE- MISC SCH (08:31)
[2019-02-27] MEDS ORDERED: MORPHINE SULFATE 2 MG/ML SYRINGE IVP ONE (09:15)
[2019-02-27] MEDS ORDERED: ACETAMINOPHEN 325 MG TABLET PO PRN (09:15)
[2019-02-27] MEDS ORDERED: LACTULOSE 20 GM/30 ML SOLUTION UDCUP PO ONE (10:15)
[2019-02-27 11:28] LABS: BASOPHILS % (AUTO) 0.6 % (0.0-2.0); EOSINOPHILS % (AUTO) 0.2 % (1.0-6.0); HEMOGLOBIN 7.2 g/dL (12.0-16.0); LYMPHOCYTES # (AUTO) 0.3 K/uL (1.0-4.8); LYMPHOCYTES % (AUTO) 4.3 % (22.0-44.0); MEAN CORPUSCULAR HGB CONC 35.1 G/dL (31.0-37.0); MEAN CORPUSCULAR VOLUME 88 fL (80-100); MONOCYTES # (AUTO) 0.6 K/uL (0.1-1.0); MONOCYTES % (AUTO) 8.2 % (2.0-9.0); NEUTROPHILS # (AUTO) 6.1 K/uL (1.8-7.7); PLATELET COUNT (AUTO) 152 K/uL (150-450); RED BLOOD CELL COUNT(AUTO) 2.33 MIL/uL (4.00-5.20); RED CELL DISTRIBUTION WIDTH 16.4 % (11.5-14.5)
[2019-02-27 11:34] LABS: CALCIUM, TOTAL 8.4 mg/dL (8.8-10.5); CREATININE 2.19 mg/dL (0.60-1.30); POTASSIUM 3.7 mmol/L (3.5-5.1)
[2019-02-27 11:40] LABS: HEMATOCRIT 20.6 % (36-46); NEUTROPHILS % (AUTO) 86.7 % (40.0-70.0)
[2019-02-27 11:41] LABS: ALBUMIN 2.3 g/dL (3.4-5.0); BILIRUBIN,TOTAL 0.4 mg/dL (0.1-1.0); TOTAL PROTEIN, SERUM 7.4 g/dL (6.4-8.2)
[2019-02-27] MEDS ORDERED: SODIUM CHLORIDE 0.9% 250 ML IV ONE (13:50)
[2019-02-27] MEDS: MORPHINE SULFATE 2 MG/ML SYRINGE IVP PRN (20:54)
[2019-02-28] VITALS (7 sets, daily range): BP systolic 112–146; BP diastolic 54–69
[2019-02-28] MEDS: ALBUMIN HUMAN 25%-12.5GM/50ML 50 ML IV SCH ×3 (05:14→20:35)
[2019-02-28 07:26] LABS: BASOPHILS % (AUTO) 0.5 % (0.0-2.0); EOSINOPHILS % (AUTO) 0.6 % (1.0-6.0); HEMATOCRIT 24.7 % (36-46); HEMOGLOBIN 8.8 g/dL (12.0-16.0); LYMPHOCYTES # (AUTO) 0.5 K/uL (1.0-4.8); LYMPHOCYTES % (AUTO) 6.6 % (22.0-44.0); MEAN CORPUSCULAR HEMOGLOBIN 30.9 pg (26.0-34.0); MEAN CORPUSCULAR HGB CONC 35.6 G/dL (31.0-37.0); MEAN CORPUSCULAR VOLUME 87 fL (80-100); MONOCYTES # (AUTO) 0.6 K/uL (0.1-1.0); MONOCYTES % (AUTO) 8.6 % (2.0-9.0); NEUTROPHILS % (AUTO) 83.7 % (40.0-70.0); PLATELET COUNT (AUTO) 148 K/uL (150-450); RED BLOOD CELL COUNT(AUTO) 2.85 MIL/uL (4.00-5.20); RED CELL DISTRIBUTION WIDTH 16.4 % (11.5-14.5)
[2019-02-28 08:02] LABS: ALBUMIN 2.5 g/dL (3.4-5.0); BILIRUBIN,TOTAL 0.8 mg/dL (0.1-1.0); CALCIUM, TOTAL 8.7 mg/dL (8.8-10.5); CREATININE 3.13 mg/dL (0.60-1.30); TOTAL PROTEIN, SERUM 7.5 g/dL (6.4-8.2)
[2019-02-28] MEDS: VITAMIN B COMP/VIT C/FOLIC ACID CAPSULE PO SCH (08:18)
[2019-02-28] MEDS: SEVELAMER CARBONATE 800 MG POWDER PACKET PO SCH ×3 (08:18→18:09)
[2019-02-28] MEDS: BISACODYL 5 MG EC TABLET PO SCH ×2 (08:21→20:35)
[2019-02-28] MEDS: DOCUSATE SODIUM 100 MG CAPSULE PO SCH ×2 (08:24→20:35)
[2019-02-28] MEDS: MORPHINE SULFATE 2 MG/ML SYRINGE IVP PRN ×2 (08:30→16:23)
[2019-02-28] MEDS ORDERED: BARIUM SULFATE 0.1% SUSPENSION 450 ML BOTTLE ONE (10:05)
[2019-02-28] MEDS ORDERED: CefoTEtan DISOD 1 GM/DEXTROSE 50 ML IV ONE (11:30)
[2019-02-28] MEDS ORDERED: SODIUM CHLORIDE 0.9% 250 ML IV ONE ×2 (12:31→21:23)
[2019-02-28] MEDS ORDERED: IOVERSOL 320 MG/ML 100 ML VIAL ONE (13:05)
[2019-02-28] MEDS ORDERED: SODIUM CHLORIDE 0.9% 100 ML ONE (13:05)
[2019-02-28] MEDS: LEVOFLOXACIN 500 MG/D5% WATER 100 ML IV SCH (21:21)
[2019-03-01] MEDS: MORPHINE SULFATE 2 MG/ML SYRINGE IVP PRN (01:14)
[2019-03-01] MEDS: ALBUMIN HUMAN 25%-12.5GM/50ML 50 ML IV SCH ×3 (04:18→22:02)
[2019-03-01 04:21] VITALS: BP 101/49
[2019-03-01 06:56] LABS: BASOPHILS % (AUTO) 0.8 % (0.0-2.0); EOSINOPHILS % (AUTO) 0.5 % (1.0-6.0); HEMATOCRIT 23.2 % (36-46); HEMOGLOBIN 8.4 g/dL (12.0-16.0); LYMPHOCYTES # (AUTO) 0.5 K/uL (1.0-4.8); LYMPHOCYTES % (AUTO) 6.1 % (22.0-44.0); MEAN CORPUSCULAR HEMOGLOBIN 31.6 pg (26.0-34.0); MEAN CORPUSCULAR HGB CONC 36.3 G/dL (31.0-37.0); MEAN CORPUSCULAR VOLUME 87 fL (80-100); MONOCYTES # (AUTO) 0.7 K/uL (0.1-1.0); MONOCYTES % (AUTO) 8.5 % (2.0-9.0); NEUTROPHILS # (AUTO) 6.7 K/uL (1.8-7.7); NEUTROPHILS % (AUTO) 84.1 % (40.0-70.0); PLATELET COUNT (AUTO) 132 K/uL (150-450); RED BLOOD CELL COUNT(AUTO) 2.66 MIL/uL (4.00-5.20); RED CELL DISTRIBUTION WIDTH 16.3 % (11.5-14.5)
[2019-03-01 07:19] LABS: ALBUMIN 2.3 g/dL (3.4-5.0); BILIRUBIN,TOTAL 0.5 mg/dL (0.1-1.0); CALCIUM, TOTAL 8.4 mg/dL (8.8-10.5); CREATININE 3.79 mg/dL (0.60-1.30); POTASSIUM 4.4 mmol/L (3.5-5.1)
[2019-03-01 08:15] VITALS: BP 96/46
[2019-03-01] MEDS: SEVELAMER CARBONATE 800 MG POWDER PACKET PO SCH ×3 (08:58→18:09)
[2019-03-01] MEDS: MIDODRINE HCL 2.5 MG TABLET PO SCH (08:59)
[2019-03-01] MEDS: VITAMIN B COMP/VIT C/FOLIC ACID CAPSULE PO SCH (08:59)
[2019-03-01] MEDS: EPOETIN ALFA 10,000 UNITS/ML VIAL SQ SCH (09:00)
[2019-03-01] MEDS: DOCUSATE SODIUM 100 MG CAPSULE PO SCH ×2 (09:00→22:03)
[2019-03-01] MEDS: BISACODYL 5 MG EC TABLET PO SCH ×2 (09:00→21:56)
[2019-03-01 16:11] VITALS: BP 112/58
[2019-03-01] MEDS: -POST HEMODIALYSIS NOTE- MISC SCH ×2 (17:07→17:14)
[2019-03-01] MEDS: CefoTEtan DISOD 1 GM/DEXTROSE 50 ML IV PRN (17:07)
[2019-03-01] MEDS ORDERED: PEG 3350/NA SULF,BICARB,CL/KCL 4000 ML SOLUTION PO ONE (19:00)
[2019-03-01 20:09] LABS: HEMATOCRIT 25.7 % (36-46); HEMOGLOBIN 8.9 g/dL (12.0-16.0)
[2019-03-01 20:16] VITALS: BP 112/58
[2019-03-02 00:17] VITALS: BP 121/58
[2019-03-02] MEDS: ALBUMIN HUMAN 25%-12.5GM/50ML 50 ML IV SCH ×3 (04:16→20:37)
[2019-03-02 04:58] VITALS: BP 96/52
[2019-03-02 07:00] LABS: BASOPHILS % (AUTO) 0.4 % (0.0-2.0); EOSINOPHILS % (AUTO) 0.6 % (1.0-6.0); HEMATOCRIT 23.4 % (36-46); HEMOGLOBIN 8.3 g/dL (12.0-16.0); LYMPHOCYTES # (AUTO) 0.4 K/uL (1.0-4.8); LYMPHOCYTES % (AUTO) 4.8 % (22.0-44.0); MEAN CORPUSCULAR HEMOGLOBIN 31.1 pg (26.0-34.0); MEAN CORPUSCULAR HGB CONC 35.6 G/dL (31.0-37.0); MEAN CORPUSCULAR VOLUME 87 fL (80-100); MONOCYTES # (AUTO) 0.6 K/uL (0.1-1.0); MONOCYTES % (AUTO) 7.6 % (2.0-9.0); NEUTROPHILS # (AUTO) 6.7 K/uL (1.8-7.7); NEUTROPHILS % (AUTO) 86.6 % (40.0-70.0); PLATELET COUNT (AUTO) 124 K/uL (150-450); RED BLOOD CELL COUNT(AUTO) 2.68 MIL/uL (4.00-5.20); RED CELL DISTRIBUTION WIDTH 16.8 % (11.5-14.5)
[2019-03-02 07:21] LABS: ALBUMIN 2.6 g/dL (3.4-5.0); BILIRUBIN,TOTAL 0.6 mg/dL (0.1-1.0); CALCIUM, TOTAL 8.5 mg/dL (8.8-10.5); CREATININE 2.44 mg/dL (0.60-1.30); POTASSIUM 3.8 mmol/L (3.5-5.1); TOTAL PROTEIN, SERUM 7.3 g/dL (6.4-8.2)
[2019-03-02 07:42] VITALS: BP 98/48
[2019-03-02] MEDS: SEVELAMER CARBONATE 800 MG POWDER PACKET PO SCH ×3 (08:00→18:30)
[2019-03-02] MEDS: DOCUSATE SODIUM 100 MG CAPSULE PO SCH ×2 (09:00→20:36)
[2019-03-02] MEDS: BISACODYL 5 MG EC TABLET PO SCH ×2 (09:00→20:36)
[2019-03-02] MEDS: -POST HEMODIALYSIS NOTE- MISC SCH (09:00)
[2019-03-02] MEDS: VITAMIN B COMP/VIT C/FOLIC ACID CAPSULE PO SCH (09:00)
[2019-03-02 11:09] VITALS: BP 110/63
[2019-03-02 15:36] VITALS: BP 111/50
[2019-03-02 20:06] VITALS: BP 94/50
[2019-03-02] MEDS: LEVOFLOXACIN 500 MG/D5% WATER 100 ML IV SCH (20:37)
[2019-03-03 00:18] VITALS: BP 109/54
[2019-03-03] MEDS: ALBUMIN HUMAN 25%-12.5GM/50ML 50 ML IV SCH ×3 (04:06→22:19)
[2019-03-03 04:36] VITALS: BP 104/56
[2019-03-03 05:34] LABS: BASOPHILS % (AUTO) 0.5 % (0.0-2.0); EOSINOPHILS % (AUTO) 0.6 % (1.0-6.0); HEMATOCRIT 23.1 % (36-46); HEMOGLOBIN 8.1 g/dL (12.0-16.0); LYMPHOCYTES # (AUTO) 0.5 K/uL (1.0-4.8); LYMPHOCYTES % (AUTO) 7.4 % (22.0-44.0); MEAN CORPUSCULAR HEMOGLOBIN 30.8 pg (26.0-34.0); MEAN CORPUSCULAR HGB CONC 35.2 G/dL (31.0-37.0); MEAN CORPUSCULAR VOLUME 88 fL (80-100); MONOCYTES # (AUTO) 0.6 K/uL (0.1-1.0); MONOCYTES % (AUTO) 8.2 % (2.0-9.0); NEUTROPHILS # (AUTO) 5.8 K/uL (1.8-7.7); NEUTROPHILS % (AUTO) 83.3 % (40.0-70.0); PLATELET COUNT (AUTO) 111 K/uL (150-450); RED BLOOD CELL COUNT(AUTO) 2.63 MIL/uL (4.00-5.20); RED CELL DISTRIBUTION WIDTH 16.6 % (11.5-14.5)
[2019-03-03 05:49] LABS: ALBUMIN 2.7 g/dL (3.4-5.0); BILIRUBIN,TOTAL 0.5 mg/dL (0.1-1.0); CALCIUM, TOTAL 8.6 mg/dL (8.8-10.5); CREATININE 3.2 mg/dL (0.60-1.30); POTASSIUM 3.8 mmol/L (3.5-5.1)
[2019-03-03 07:42] VITALS: BP 111/71
[2019-03-03] MEDS: SEVELAMER CARBONATE 800 MG POWDER PACKET PO SCH ×3 (08:00→18:39)
[2019-03-03] MEDS: MIDODRINE HCL 2.5 MG TABLET PO SCH ×2 (09:00→16:34)
[2019-03-03] MEDS: BISACODYL 5 MG EC TABLET PO SCH (09:00)
[2019-03-03] MEDS: VITAMIN B COMP/VIT C/FOLIC ACID CAPSULE PO SCH (09:00)
[2019-03-03] MEDS: DOCUSATE SODIUM 100 MG CAPSULE PO SCH ×2 (09:00→20:43)
[2019-03-03 11:34] VITALS: BP 124/61
[2019-03-03] MEDS ORDERED: SODIUM CHLORIDE 0.9% 1,000 ML IV ONE ×2 (11:43→12:00)
[2019-03-03] MEDS ORDERED: PROPOFOL 1% 20 ML VIAL IVP ONE (12:00)
[2019-03-03] MEDS ORDERED: LIDOCAINE/PF 2% 5 ML VIAL INJ ONE (12:00)
[2019-03-03] MEDS ORDERED: BARIUM SULFATE 0.1% SUSPENSION 450 ML BOTTLE ONE (12:55)
[2019-03-03 15:23] VITALS: BP 102/54
[2019-03-03] MEDS: EPOETIN ALFA 10,000 UNITS/ML VIAL SQ SCH (16:25)
[2019-03-03] MEDS: CefoTEtan DISOD 1 GM/DEXTROSE 50 ML IV PRN (19:49)
[2019-03-03] MEDS: -POST HEMODIALYSIS NOTE- MISC SCH (19:53)
[2019-03-03 20:05] VITALS: BP 125/68
[2019-03-04] VITALS (7 sets, daily range): BP systolic 84–118; BP diastolic 40–53
[2019-03-04] MEDS: ALBUMIN HUMAN 25%-12.5GM/50ML 50 ML IV SCH ×3 (04:55→20:50)
[2019-03-04 06:53] LABS: BASOPHILS % (AUTO) 0.2 % (0.0-2.0); EOSINOPHILS % (AUTO) 0.3 % (1.0-6.0); HEMATOCRIT 23.7 % (36-46); HEMOGLOBIN 8.5 g/dL (12.0-16.0); LYMPHOCYTES # (AUTO) 0.6 K/uL (1.0-4.8); LYMPHOCYTES % (AUTO) 7.8 % (22.0-44.0); MEAN CORPUSCULAR HEMOGLOBIN 31.3 pg (26.0-34.0); MEAN CORPUSCULAR VOLUME 87 fL (80-100); MONOCYTES # (AUTO) 0.7 K/uL (0.1-1.0); MONOCYTES % (AUTO) 9.5 % (2.0-9.0); NEUTROPHILS # (AUTO) 6.3 K/uL (1.8-7.7); NEUTROPHILS % (AUTO) 82.2 % (40.0-70.0); PLATELET COUNT (AUTO) 118 K/uL (150-450); RED BLOOD CELL COUNT(AUTO) 2.73 MIL/uL (4.00-5.20); RED CELL DISTRIBUTION WIDTH 16.9 % (11.5-14.5)
[2019-03-04 07:09] LABS: ALBUMIN 2.8 g/dL (3.4-5.0); BILIRUBIN,TOTAL 0.4 mg/dL (0.1-1.0); CALCIUM, TOTAL 8.7 mg/dL (8.8-10.5); CREATININE 2.22 mg/dL (0.60-1.30); POTASSIUM 3.4 mmol/L (3.5-5.1); TOTAL PROTEIN, SERUM 7.2 g/dL (6.4-8.2)
[2019-03-04] MEDS: SEVELAMER CARBONATE 800 MG POWDER PACKET PO SCH ×3 (08:00→18:57)
[2019-03-04] MEDS: DOCUSATE SODIUM 100 MG CAPSULE PO SCH ×2 (08:13→20:50)
[2019-03-04] MEDS: VITAMIN B COMP/VIT C/FOLIC ACID CAPSULE PO SCH (08:13)
[2019-03-04 14:52] LABS: INR 3.4 (0.9-1.1); PROTHROMBIN TIME 35.1 SEC (9.4-11.6)
[2019-03-04] MEDS: LEVOFLOXACIN 500 MG/D5% WATER 100 ML IV SCH (21:34)
[2019-03-05] VITALS: BP 103/52
[2019-03-05] MEDS ORDERED: SODIUM CHLORIDE 0.9% 1,000 ML IV ONE (04:02)
[2019-03-05 04:15] VITALS: BP 117/58
[2019-03-05] MEDS: ALBUMIN HUMAN 25%-12.5GM/50ML 50 ML IV SCH ×3 (05:15→20:46)
[2019-03-05 06:31] LABS: BASOPHILS % (AUTO) 0.3 % (0.0-2.0); EOSINOPHILS % (AUTO) 0.4 % (1.0-6.0); HEMATOCRIT 21.7 % (36-46); HEMOGLOBIN 7.7 g/dL (12.0-16.0); LYMPHOCYTES # (AUTO) 0.5 K/uL (1.0-4.8); LYMPHOCYTES % (AUTO) 6.9 % (22.0-44.0); MEAN CORPUSCULAR HEMOGLOBIN 30.8 pg (26.0-34.0); MEAN CORPUSCULAR HGB CONC 35.6 G/dL (31.0-37.0); MEAN CORPUSCULAR VOLUME 87 fL (80-100); MONOCYTES # (AUTO) 0.6 K/uL (0.1-1.0); MONOCYTES % (AUTO) 8.2 % (2.0-9.0); NEUTROPHILS # (AUTO) 5.9 K/uL (1.8-7.7); NEUTROPHILS % (AUTO) 84.2 % (40.0-70.0); PLATELET COUNT (AUTO) 102 K/uL (150-450)
[2019-03-05 06:48] LABS: ALBUMIN 2.8 g/dL (3.4-5.0); BILIRUBIN,TOTAL 0.6 mg/dL (0.1-1.0); CALCIUM, TOTAL 8.4 mg/dL (8.8-10.5); CREATININE 1.28 mg/dL (0.60-1.30); POTASSIUM 3.2 mmol/L (3.5-5.1); TOTAL PROTEIN, SERUM 7.3 g/dL (6.4-8.2)
[2019-03-05] MEDS: DOCUSATE SODIUM 100 MG CAPSULE PO SCH ×2 (09:00→20:45)
[2019-03-05] MEDS: MIDODRINE HCL 2.5 MG TABLET PO SCH (09:00)
[2019-03-05] MEDS: EPOETIN ALFA 10,000 UNITS/ML VIAL SQ SCH (09:01)
[2019-03-05] MEDS: SEVELAMER CARBONATE 800 MG POWDER PACKET PO SCH ×3 (09:02→17:59)
[2019-03-05] MEDS: VITAMIN B COMP/VIT C/FOLIC ACID CAPSULE PO SCH (09:02)
[2019-03-05 10:58] VITALS: BP 107/55
[2019-03-05] MEDS ORDERED: POTASSIUM CHLORIDE 10% 40 MEQ/30 ML LIQUID UDCUP PO ONE (11:45)
[2019-03-05] MEDS: CefoTEtan DISOD 1 GM/DEXTROSE 50 ML IV PRN (13:14)
[2019-03-05] MEDS: -POST HEMODIALYSIS NOTE- MISC SCH (13:15)
[2019-03-05 13:32] LABS: INR 2.7 (0.9-1.1); PROTHROMBIN TIME 27.1 SEC (9.4-11.6)
[2019-03-05 15:07] VITALS: BP 110/65
[2019-03-05 20:00] VITALS: BP 119/59
[2019-03-06] VITALS (16 sets, daily range): BP systolic 99–125; BP diastolic 44–68
[2019-03-06] MEDS: ALBUMIN HUMAN 25%-12.5GM/50ML 50 ML IV SCH (05:17)
[2019-03-06 07:20] LABS: BASOPHILS % (AUTO) 0.3 % (0.0-2.0); EOSINOPHILS % (AUTO) 0.2 % (1.0-6.0); HEMATOCRIT 21.4 % (36-46); HEMOGLOBIN 7.6 g/dL (12.0-16.0); LYMPHOCYTES # (AUTO) 0.7 K/uL (1.0-4.8); LYMPHOCYTES % (AUTO) 7.4 % (22.0-44.0); MEAN CORPUSCULAR HEMOGLOBIN 31.1 pg (26.0-34.0); MEAN CORPUSCULAR HGB CONC 35.5 G/dL (31.0-37.0); MEAN CORPUSCULAR VOLUME 88 fL (80-100); MONOCYTES # (AUTO) 0.7 K/uL (0.1-1.0); MONOCYTES % (AUTO) 7.9 % (2.0-9.0); NEUTROPHILS % (AUTO) 84.2 % (40.0-70.0); PLATELET COUNT (AUTO) 103 K/uL (150-450); RED BLOOD CELL COUNT(AUTO) 2.44 MIL/uL (4.00-5.20); RED CELL DISTRIBUTION WIDTH 17.8 % (11.5-14.5)
[2019-03-06 07:30] LABS: INR 2.3 (0.9-1.1); PROTHROMBIN TIME 23.3 SEC (9.4-11.6)
[2019-03-06 07:35] LABS: ALBUMIN 2.9 g/dL (3.4-5.0); BILIRUBIN,TOTAL 0.6 mg/dL (0.1-1.0); CREATININE 2.19 mg/dL (0.60-1.30); POTASSIUM 4.5 mmol/L (3.5-5.1); TOTAL PROTEIN, SERUM 7.4 g/dL (6.4-8.2)
[2019-03-06] MEDS: VITAMIN B COMP/VIT C/FOLIC ACID CAPSULE PO SCH (09:33)
[2019-03-06] MEDS: SEVELAMER CARBONATE 800 MG POWDER PACKET PO SCH ×3 (09:33→18:47)
[2019-03-06] MEDS: DOCUSATE SODIUM 100 MG CAPSULE PO SCH ×2 (09:33→20:52)
[2019-03-06] MEDS ORDERED: SODIUM CHLORIDE 0.9% 250 ML IV ONE (15:42)
[2019-03-06] MEDS: LEVOFLOXACIN 500 MG/D5% WATER 100 ML IV SCH (20:52)
[2019-03-07 05:26] VITALS: BP 102/57
[2019-03-07 08:24] VITALS: BP 105/58
[2019-03-07] MEDS: DOCUSATE SODIUM 100 MG CAPSULE PO SCH ×2 (08:24→20:21)
[2019-03-07] MEDS: SEVELAMER CARBONATE 800 MG POWDER PACKET PO SCH ×3 (08:24→18:02)
[2019-03-07] MEDS: VITAMIN B COMP/VIT C/FOLIC ACID CAPSULE PO SCH (08:24)
[2019-03-07 09:37] LABS: BASOPHILS % (AUTO) 0.5 % (0.0-2.0); EOSINOPHILS % (AUTO) 0.3 % (1.0-6.0); HEMATOCRIT 28.3 % (36-46); HEMOGLOBIN 9.9 g/dL (12.0-16.0); LYMPHOCYTES # (AUTO) 0.7 K/uL (1.0-4.8); LYMPHOCYTES % (AUTO) 7.8 % (22.0-44.0); MEAN CORPUSCULAR HEMOGLOBIN 30.7 pg (26.0-34.0); MEAN CORPUSCULAR HGB CONC 34.9 G/dL (31.0-37.0); MEAN CORPUSCULAR VOLUME 88 fL (80-100); MONOCYTES # (AUTO) 0.6 K/uL (0.1-1.0); MONOCYTES % (AUTO) 6.8 % (2.0-9.0); NEUTROPHILS # (AUTO) 7.9 K/uL (1.8-7.7); NEUTROPHILS % (AUTO) 84.6 % (40.0-70.0); RED BLOOD CELL COUNT(AUTO) 3.21 MIL/uL (4.00-5.20); RED CELL DISTRIBUTION WIDTH 17.6 % (11.5-14.5)
[2019-03-07 10:05] LABS: PLATELET COUNT (AUTO) 87 K/uL (150-450)
[2019-03-07 11:52] VITALS: BP 129/64
[2019-03-07 16:29] VITALS: BP 114/61
[2019-03-07 20:11] VITALS: BP 118/61
[2019-03-08 04:52] VITALS: BP 109/55
[2019-03-08 06:14] LABS: BASOPHILS % (AUTO) 0.4 % (0.0-2.0); EOSINOPHILS % (AUTO) 0.6 % (1.0-6.0); HEMATOCRIT 26.4 % (36-46); HEMOGLOBIN 9.4 g/dL (12.0-16.0); LYMPHOCYTES # (AUTO) 0.9 K/uL (1.0-4.8); LYMPHOCYTES % (AUTO) 10.3 % (22.0-44.0); MEAN CORPUSCULAR HEMOGLOBIN 31.1 pg (26.0-34.0); MEAN CORPUSCULAR HGB CONC 35.4 G/dL (31.0-37.0); MEAN CORPUSCULAR VOLUME 88 fL (80-100); MONOCYTES # (AUTO) 0.7 K/uL (0.1-1.0); MONOCYTES % (AUTO) 7.8 % (2.0-9.0); NEUTROPHILS # (AUTO) 7.1 K/uL (1.8-7.7); NEUTROPHILS % (AUTO) 80.9 % (40.0-70.0); PLATELET COUNT (AUTO) 91 K/uL (150-450); RED BLOOD CELL COUNT(AUTO) 3.01 MIL/uL (4.00-5.20); RED CELL DISTRIBUTION WIDTH 17.6 % (11.5-14.5)
[2019-03-08 06:29] LABS: CALCIUM, TOTAL 8.9 mg/dL (8.8-10.5); CREATININE 3.86 mg/dL (0.60-1.30); MAGNESIUM 1.6 mg/dL (1.80-2.40); POTASSIUM 5.6 mmol/L (3.5-5.1)
[2019-03-08 06:51] LABS: PHOSPHORUS 1.4 mg/dL (2.5-4.9)
[2019-03-08 08:03] VITALS: BP 135/81
[2019-03-08] MEDS ORDERED: SODIUM PHOS,M-BASIC-D-BASIC 30 MMOL in DEXTROSE 5%-WATER 250 ML IV ONE (08:30)
[2019-03-08] MEDS ORDERED: EPOETIN ALFA 10,000 UNITS/ML 2 ML VIAL SQ SCH (09:00)
[2019-03-08] MEDS: DOCUSATE SODIUM 100 MG CAPSULE PO SCH (09:00)
[2019-03-08] MEDS: MIDODRINE HCL 2.5 MG TABLET PO SCH (09:16)
[2019-03-08] MEDS: VITAMIN B COMP/VIT C/FOLIC ACID CAPSULE PO SCH (09:16)
[2019-03-08] MEDS ORDERED: SODIUM CHLORIDE 0.9% 250 ML IV ONE (09:24)
[2019-03-08] MEDS ORDERED: MAGNESIUM SULFATE 2 GM/WATER 50 ML IV ONE (13:15)
[2019-03-08] MEDS: CefoTEtan DISOD 1 GM/DEXTROSE 50 ML IV PRN (14:59)
[2019-03-08] MEDS: -POST HEMODIALYSIS NOTE- MISC SCH (15:03)
[2019-03-08 15:31] VITALS: BP 115/57
== END 2019-03-08 17:35 | DRG 371 ==
LOC: EMS 11:19 → 5S 18:54
PROVIDERS: ADMIT Internal Medicine; ATTEND Internal Medicine
PROC: 0W9G3ZZ Drainage of Peritoneal Cavity, Percutaneous Approach (ICD-10-PCS; 2019-02-25)
PROC: 5A1D70Z Performance of Urinary Filtration, Intermittent, Less than 6 Hours Per Day (ICD-10-PCS; 2019-02-26)
PROC: 5A1D70Z Performance of Urinary Filtration, Intermittent, Less than 6 Hours Per Day (ICD-10-PCS; 2019-03-01)
PROC: 5A1D70Z Performance of Urinary Filtration, Intermittent, Less than 6 Hours Per Day (ICD-10-PCS; 2019-03-03)
PROC: 0DJD8ZZ Inspection of Lower Intestinal Tract, Via Natural or Artificial Opening Endoscopic (ICD-10-PCS; principal; 2019-03-03 12:10)
PROC: 5A1D70Z Performance of Urinary Filtration, Intermittent, Less than 6 Hours Per Day (ICD-10-PCS; 2019-03-05)
PROC: 30233N1 Transfusion of Nonautologous Red Blood Cells into Peripheral Vein, Percutaneous Approach (ICD-10-PCS; 2019-03-06)
PROC: 5A1D70Z Performance of Urinary Filtration, Intermittent, Less than 6 Hours Per Day (ICD-10-PCS; 2019-03-08)
DX: K65.2 Spontaneous bacterial peritonitis (principal); E43 Unspecified severe protein-calorie malnutrition; N18.6 End stage renal disease; R18.8 Other ascites; I12.0 Hypertensive chronic kidney disease with stage 5 chronic kidney disease or end stage renal disease; K76.6 Portal hypertension; E87.1 Hypo-osmolality and hyponatremia; D68.9 Coagulation defect, unspecified; Z99.2 Dependence on renal dialysis; K74.60 Unspecified cirrhosis of liver; D63.1 Anemia in chronic kidney disease; K57.30 Diverticulosis of large intestine without perforation or abscess without bleeding; K64.4 Residual hemorrhoidal skin tags; K64.8 Other hemorrhoids; B96.20 Unspecified Escherichia coli [E. coli] as the cause of diseases classified elsewhere; E78.5 Hyperlipidemia, unspecified; K59.00 Constipation, unspecified; E87.6 Hypokalemia; E83.39 Other disorders of phosphorus metabolism; E83.42 Hypomagnesemia; Z83.3 Family history of diabetes mellitus; Z82.49 Family history of ischemic heart disease and other diseases of the circulatory system; Z86.11 Personal history of tuberculosis; Z68.24 Body mass index [BMI] 24.0-24.9, adult
CPT/HCPCS: 49083; 51701; 74018; 74176; 74177; 76942; 82271; 83605; 83735; 84100; 85014; 85018; 86850; 86900; 86901; 86920; 87070; 87081; 87205; 87340; 88108; 88312; 89051; 93005; 97110; 97116; 97162; 97166; 97530; 97535; G0378; J0696; J0697; J0885; J1956; J2150; J2270; J2405; J2704; J3475; J3490; J7030; J7050; J7060; P9016; P9046; P9047

== ENCOUNTER 2019-04-16 20:00 | Emergency (ER) | payer MEDICARE, OTHER ==
[~2019-04-16] VITALS: Ht 149.9 cm; Wt 43.7 kg
[~2019-04-16 20:00] MED LIST changes: +B CO1CAP6 PO; -CEFO1I IM; -FOLI1CAP2 PO
[2019-04-16 21:16] LABS: BASOPHILS % (AUTO) 0.4 % (0.0-2.0); EOSINOPHILS % (AUTO) 0.3 % (1.0-6.0); HEMATOCRIT 23.7 % (36-46); HEMOGLOBIN 7.9 g/dL (12.0-16.0); LYMPHOCYTES # (AUTO) 0.6 K/uL (1.0-4.8); MEAN CORPUSCULAR HEMOGLOBIN 29.5 pg (26.0-34.0); MEAN CORPUSCULAR HGB CONC 33.5 G/dL (31.0-37.0); MEAN CORPUSCULAR VOLUME 88 fL (80-100); MONOCYTES # (AUTO) 0.4 K/uL (0.1-1.0); MONOCYTES % (AUTO) 5.1 % (2.0-9.0); NEUTROPHILS # (AUTO) 6.9 K/uL (1.8-7.7); PLATELET COUNT (AUTO) 219 K/uL (150-450); RED BLOOD CELL COUNT(AUTO) 2.69 MIL/uL (4.00-5.20); RED CELL DISTRIBUTION WIDTH 18.9 % (11.5-14.5)
[2019-04-16 21:22] LABS: NEUTROPHILS % (AUTO) 87.2 % (40.0-70.0)
[2019-04-16 21:27] LABS: CALCIUM, TOTAL 8.6 mg/dL (8.8-10.5); CREATININE 1.36 mg/dL (0.60-1.30)
[2019-04-16 21:32] VITALS: BP 126/78
[2019-04-16 21:32] LABS: ALBUMIN 1.8 g/dL (3.4-5.0); BILIRUBIN,TOTAL 0.3 mg/dL (0.1-1.0); TOTAL PROTEIN, SERUM 8.9 g/dL (6.4-8.2)
== END 2019-04-16 21:50 | disposition home or self-care (01) ==
LOC: EMS 20:01
DX: D64.9 Anemia, unspecified (principal); K74.60 Unspecified cirrhosis of liver; N18.6 End stage renal disease; Z99.2 Dependence on renal dialysis
CPT/HCPCS: 86850; 86900; 86901

== ENCOUNTER 2019-04-27 11:40 | Inpatient (IN) | payer MEDICARE, OTHER ==
[~2019-04-27] VITALS: Ht 157.5 cm; Wt 45.0 kg
[2019-04-27] VITALS (7 sets, daily range): BP systolic 103–113; BP diastolic 47–54
[2019-04-27 12:53] LABS: BASOPHILS % (AUTO) 0.7 % (0.0-2.0); EOSINOPHILS % (AUTO) 0.3 % (1.0-6.0); LYMPHOCYTES # (AUTO) 0.5 K/uL (1.0-4.8); LYMPHOCYTES % (AUTO) 8.3 % (22.0-44.0); MEAN CORPUSCULAR HEMOGLOBIN 29.3 pg (26.0-34.0); MEAN CORPUSCULAR HGB CONC 33.6 G/dL (31.0-37.0); MEAN CORPUSCULAR VOLUME 87 fL (80-100); MONOCYTES # (AUTO) 0.4 K/uL (0.1-1.0); MONOCYTES % (AUTO) 5.8 % (2.0-9.0); NEUTROPHILS # (AUTO) 5.3 K/uL (1.8-7.7); NEUTROPHILS % (AUTO) 84.9 % (40.0-70.0); PLATELET COUNT (AUTO) 190 K/uL (150-450); RED BLOOD CELL COUNT(AUTO) 1.79 MIL/uL (4.00-5.20); RED CELL DISTRIBUTION WIDTH 19.3 % (11.5-14.5)
[2019-04-27 12:55] LABS: HEMATOCRIT 15.6 % (36-46); HEMOGLOBIN 5.2 g/dL (12.0-16.0)
[2019-04-27 13:00] LABS: CALCIUM, TOTAL 8.6 mg/dL (8.8-10.5); CREATININE 2.18 mg/dL (0.60-1.30); POTASSIUM 3.4 mmol/L (3.5-5.1)
[2019-04-27] MEDS ORDERED: PANTOPRAZOLE SODIUM 40 MG/VIAL IVP ONE (13:00)
[2019-04-27] MEDS ORDERED: ONDANSETRON HCL 4 MG/2 ML VIAL IVP PRN (13:15)
[2019-04-27] MEDS ORDERED: 0.9% SODIUM CHLORIDE 10 ML SYRINGE IVP PRN (13:15)
[2019-04-27] MEDS ORDERED: ACETAMINOPHEN 325 MG TABLET PO PRN (13:15)
[2019-04-27] MEDS ORDERED: CefTRIAXone 1 GM/DEXTROSE 50 ML IV ONE (13:30)
[2019-04-27 13:37] LABS: INR 1.1 (0.9-1.1); PROTHROMBIN TIME 11.2 SEC (9.4-11.6)
[2019-04-27 13:54] LABS: ALBUMIN 1.6 g/dL (3.4-5.0); BILIRUBIN,DIRECT 0.1 mg/dL (0.00-0.20); BILIRUBIN,TOTAL 0.3 mg/dL (0.1-1.0)
[2019-04-27] MEDS ORDERED: SODIUM CHLORIDE 0.9% 500 ML IV ONE (14:23)
[2019-04-27 18:25] LABS: HEMATOCRIT 21.8 % (36-46); HEMOGLOBIN 7.4 g/dL (12.0-16.0)
[2019-04-28 00:01] VITALS: BP 112/51
[2019-04-28] MEDS ORDERED: IPRATROPIUM BROMIDE 0.5 MG/2.5 ML NEB SOLUTION NEB PRN (00:15)
[2019-04-28] MEDS ORDERED: ACETAMINOPHEN 325 MG TABLET PO PRN (00:15)
[2019-04-28] MEDS ORDERED: ZOLPIDEM TARTRATE 5 MG TABLET PO PRN (00:15)
[2019-04-28] MEDS ORDERED: MORPHINE SULFATE 2 MG/ML SYRINGE IVP PRN (00:15)
[2019-04-28] MEDS ORDERED: HYDROCODONE/ACETAMINOPHEN 5-325 MG TABLET PO PRN (00:15)
[2019-04-28] MEDS ORDERED: MAGNESIUM HYDROXIDE SUSPENSION 30 ML UDCUP PO PRN (00:15)
[2019-04-28] MEDS ORDERED: BISACODYL 10 MG RECTAL RECTAL SUPPOSITORY PR PRN (00:15)
[2019-04-28] MEDS ORDERED: ONDANSETRON HCL 4 MG/2 ML VIAL IVP PRN (00:15)
[2019-04-28] MEDS ORDERED: ALBUTEROL SULFATE 2.5 MG/0.5 ML NEB SOLUTION NEB PRN (00:15)
[2019-04-28 04:08] VITALS: BP 116/58
[2019-04-28 07:25] VITALS: BP 115/58
[2019-04-28] MEDS: SEVELAMER CARBONATE 800 MG POWDER PACKET PO SCH ×3 (08:00→17:06)
[2019-04-28] MEDS: DOCUSATE SODIUM 100 MG CAPSULE PO SCH ×2 (09:00→20:22)
[2019-04-28] MEDS: VITAMIN B COMP/VIT C/FOLIC ACID CAPSULE PO SCH (09:00)
[2019-04-28] MEDS: BISACODYL 5 MG EC TABLET PO SCH ×2 (09:00→20:21)
[2019-04-28] MEDS: FAMOTIDINE 20 MG TABLET PO SCH (09:00)
[2019-04-28] MEDS ORDERED: SODIUM CHLORIDE 0.9% 2,000 ML ONE (10:40)
[2019-04-28] MEDS ORDERED: CefTRIAXone 1 GM/DEXTROSE 50 ML IV SCH (13:00)
[2019-04-28] MEDS ORDERED: SODIUM CHLORIDE 0.9% 1,000 ML IV ONE (15:00)
[2019-04-28] MEDS ORDERED: SODIUM CHLORIDE 0.9% 1,000 ML ONE (15:18)
[2019-04-28] MEDS ORDERED: CIPROFLOXACIN HCL 500 MG TABLET PO ONE (17:30)
[2019-04-28] MEDS: EPOETIN ALFA 10,000 UNITS/ML 2 ML VIAL SQ SCH (18:14)
[2019-04-28 18:20] VITALS: BP 128/65
[2019-04-28] MEDS: LACTULOSE 20 GM/30 ML SOLUTION UDCUP PO SCH (20:21)
[2019-04-28 20:24] VITALS: BP 127/59
[2019-04-29] VITALS (7 sets, daily range): BP systolic 113–139; BP diastolic 57–69
[2019-04-29] MEDS ORDERED: PROPOFOL 1% 20 ML VIAL IVP ONE (00:59)
[2019-04-29] MEDS ORDERED: LIDOCAINE/PF 2% 5 ML SYRINGE IVP ONE (00:59)
[2019-04-29 06:49] LABS: BASOPHILS % (AUTO) 0.4 % (0.0-2.0); EOSINOPHILS % (AUTO) 0.2 % (1.0-6.0); HEMATOCRIT 21.8 % (36-46); HEMOGLOBIN 7.4 g/dL (12.0-16.0); LYMPHOCYTES # (AUTO) 0.7 K/uL (1.0-4.8); MEAN CORPUSCULAR HEMOGLOBIN 29.9 pg (26.0-34.0); MEAN CORPUSCULAR VOLUME 88 fL (80-100); MONOCYTES # (AUTO) 0.4 K/uL (0.1-1.0); MONOCYTES % (AUTO) 4.9 % (2.0-9.0); NEUTROPHILS # (AUTO) 7.1 K/uL (1.8-7.7); PLATELET COUNT (AUTO) 168 K/uL (150-450); RED BLOOD CELL COUNT(AUTO) 2.48 MIL/uL (4.00-5.20); RED CELL DISTRIBUTION WIDTH 17.6 % (11.5-14.5)
[2019-04-29 06:55] LABS: NEUTROPHILS % (AUTO) 86.5 % (40.0-70.0)
[2019-04-29 07:00] LABS: ALBUMIN 1.5 g/dL (3.4-5.0); BILIRUBIN,TOTAL 0.4 mg/dL (0.1-1.0); CALCIUM, TOTAL 8.4 mg/dL (8.8-10.5); CREATININE 1.87 mg/dL (0.60-1.30); POTASSIUM 3.6 mmol/L (3.5-5.1); TOTAL PROTEIN, SERUM 7.7 g/dL (6.4-8.2)
[2019-04-29] MEDS: DOCUSATE SODIUM 100 MG CAPSULE PO SCH ×2 (09:00→20:34)
[2019-04-29] MEDS: BISACODYL 5 MG EC TABLET PO SCH ×2 (09:00→20:34)
[2019-04-29] MEDS: LACTULOSE 20 GM/30 ML SOLUTION UDCUP PO SCH ×2 (09:00→20:34)
[2019-04-29] MEDS: SEVELAMER CARBONATE 800 MG POWDER PACKET PO SCH ×3 (10:54→16:43)
[2019-04-29] MEDS: FAMOTIDINE 20 MG TABLET PO SCH (10:54)
[2019-04-29] MEDS: VITAMIN B COMP/VIT C/FOLIC ACID CAPSULE PO SCH (10:54)
[2019-04-29] MEDS: SOD FERRIC GLUC COMPLX/SUCROSE 125 MG in SODIUM CHLORIDE 0.9% 100 ML IV SCH (13:40)
[2019-04-30] VITALS (12 sets, daily range): BP systolic 106–123; BP diastolic 52–64
[2019-04-30 06:36] LABS: BASOPHILS % (AUTO) 0.5 % (0.0-2.0); EOSINOPHILS % (AUTO) 0.2 % (1.0-6.0); HEMOGLOBIN 7.1 g/dL (12.0-16.0); LYMPHOCYTES # (AUTO) 0.8 K/uL (1.0-4.8); LYMPHOCYTES % (AUTO) 9.2 % (22.0-44.0); MEAN CORPUSCULAR HEMOGLOBIN 30.3 pg (26.0-34.0); MEAN CORPUSCULAR HGB CONC 34.4 G/dL (31.0-37.0); MEAN CORPUSCULAR VOLUME 88 fL (80-100); MONOCYTES # (AUTO) 0.4 K/uL (0.1-1.0); MONOCYTES % (AUTO) 4.7 % (2.0-9.0); NEUTROPHILS # (AUTO) 7.5 K/uL (1.8-7.7); PLATELET COUNT (AUTO) 151 K/uL (150-450); RED BLOOD CELL COUNT(AUTO) 2.36 MIL/uL (4.00-5.20); RED CELL DISTRIBUTION WIDTH 17.9 % (11.5-14.5)
[2019-04-30 06:47] LABS: NEUTROPHILS % (AUTO) 85.4 % (40.0-70.0)
[2019-04-30 06:56] LABS: ALBUMIN 1.4 g/dL (3.4-5.0); BILIRUBIN,TOTAL 0.4 mg/dL (0.1-1.0); CREATININE 2.82 mg/dL (0.60-1.30); POTASSIUM 3.5 mmol/L (3.5-5.1); TOTAL PROTEIN, SERUM 7.3 g/dL (6.4-8.2)
[2019-04-30] MEDS: BISACODYL 5 MG EC TABLET PO SCH ×2 (09:00→21:00)
[2019-04-30] MEDS: LACTULOSE 20 GM/30 ML SOLUTION UDCUP PO SCH ×2 (09:00→21:00)
[2019-04-30] MEDS: DOCUSATE SODIUM 100 MG CAPSULE PO SCH ×2 (09:00→21:00)
[2019-04-30] MEDS: SEVELAMER CARBONATE 800 MG POWDER PACKET PO SCH ×3 (09:21→17:20)
[2019-04-30] MEDS: FAMOTIDINE 20 MG TABLET PO SCH (09:21)
[2019-04-30] MEDS: VITAMIN B COMP/VIT C/FOLIC ACID CAPSULE PO SCH (09:21)
[2019-04-30] MEDS: EPOETIN ALFA 10,000 UNITS/ML 2 ML VIAL SQ SCH (09:22)
[2019-04-30] MEDS: SOD FERRIC GLUC COMPLX/SUCROSE 125 MG in SODIUM CHLORIDE 0.9% 100 ML IV SCH (16:11)
[2019-05-01 00:07] VITALS: BP 111/59
[2019-05-01 04:00] VITALS: BP 110/56
[2019-05-01 07:58] LABS: BASOPHILS % (AUTO) 0.6 % (0.0-2.0); EOSINOPHILS % (AUTO) 0.5 % (1.0-6.0); HEMATOCRIT 27.3 % (36-46); HEMOGLOBIN 9.2 g/dL (12.0-16.0); LYMPHOCYTES # (AUTO) 0.7 K/uL (1.0-4.8); LYMPHOCYTES % (AUTO) 9.3 % (22.0-44.0); MEAN CORPUSCULAR HEMOGLOBIN 29.8 pg (26.0-34.0); MEAN CORPUSCULAR HGB CONC 33.7 G/dL (31.0-37.0); MEAN CORPUSCULAR VOLUME 89 fL (80-100); MONOCYTES # (AUTO) 0.5 K/uL (0.1-1.0); MONOCYTES % (AUTO) 6.2 % (2.0-9.0); NEUTROPHILS # (AUTO) 6.3 K/uL (1.8-7.7); NEUTROPHILS % (AUTO) 83.4 % (40.0-70.0); PLATELET COUNT (AUTO) 147 K/uL (150-450); RED BLOOD CELL COUNT(AUTO) 3.08 MIL/uL (4.00-5.20); RED CELL DISTRIBUTION WIDTH 16.9 % (11.5-14.5)
[2019-05-01 08:09] VITALS: BP 112/58
[2019-05-01] MEDS: VITAMIN B COMP/VIT C/FOLIC ACID CAPSULE PO SCH (08:13)
[2019-05-01] MEDS: FAMOTIDINE 20 MG TABLET PO SCH (08:13)
[2019-05-01] MEDS: SEVELAMER CARBONATE 800 MG POWDER PACKET PO SCH ×2 (08:13→11:57)
[2019-05-01] MEDS: DOCUSATE SODIUM 100 MG CAPSULE PO SCH (08:14)
[2019-05-01] MEDS: LACTULOSE 20 GM/30 ML SOLUTION UDCUP PO SCH (08:14)
[2019-05-01] MEDS: BISACODYL 5 MG EC TABLET PO SCH (08:15)
[2019-05-01 08:18] LABS: ALBUMIN 1.4 g/dL (3.4-5.0); BILIRUBIN,TOTAL 0.6 mg/dL (0.1-1.0); CALCIUM, TOTAL 7.9 mg/dL (8.8-10.5); CREATININE 1.89 mg/dL (0.60-1.30); POTASSIUM 3.8 mmol/L (3.5-5.1); TOTAL PROTEIN, SERUM 7.5 g/dL (6.4-8.2)
[2019-05-01 11:53] VITALS: BP 115/61
[2019-05-01] MEDS: SOD FERRIC GLUC COMPLX/SUCROSE 125 MG in SODIUM CHLORIDE 0.9% 100 ML IV SCH (13:31)
[2019-05-01 15:43] VITALS: BP 122/60
== END 2019-05-01 16:01 | disposition home or self-care (01) | DRG 377 ==
LOC: EMS 11:41 → 4E 15:08 → 6N 04-30 14:31
PROVIDERS: ADMIT Hospitalist; ATTEND Hospitalist
PROC: 30233N1 Transfusion of Nonautologous Red Blood Cells into Peripheral Vein, Percutaneous Approach (ICD-10-PCS; 2019-04-27)
PROC: 0DB68ZX Excision of Stomach, Via Natural or Artificial Opening Endoscopic, Diagnostic (ICD-10-PCS; 2019-04-28)
PROC: 5A1D70Z Performance of Urinary Filtration, Intermittent, Less than 6 Hours Per Day (ICD-10-PCS; 2019-04-28)
PROC: 0DB98ZX Excision of Duodenum, Via Natural or Artificial Opening Endoscopic, Diagnostic (ICD-10-PCS; principal; 2019-04-28 17:15)
PROC: 5A1D70Z Performance of Urinary Filtration, Intermittent, Less than 6 Hours Per Day (ICD-10-PCS; 2019-04-30)
DX: K29.71 Gastritis, unspecified, with bleeding (principal); N18.6 End stage renal disease; E43 Unspecified severe protein-calorie malnutrition; E87.1 Hypo-osmolality and hyponatremia; R18.8 Other ascites; I12.0 Hypertensive chronic kidney disease with stage 5 chronic kidney disease or end stage renal disease; I85.10 Secondary esophageal varices without bleeding; I95.9 Hypotension, unspecified; D63.1 Anemia in chronic kidney disease; E78.5 Hyperlipidemia, unspecified; K44.9 Diaphragmatic hernia without obstruction or gangrene; K74.69 Other cirrhosis of liver; R62.7 Adult failure to thrive; K74.60 Unspecified cirrhosis of liver; Z82.49 Family history of ischemic heart disease and other diseases of the circulatory system; Z83.3 Family history of diabetes mellitus; Z84.1 Family history of disorders of kidney and ureter; Z86.11 Personal history of tuberculosis; Z99.2 Dependence on renal dialysis
CPT/HCPCS: 76700; 76705; 85014; 85018; 86850; 86900; 86901; 86920; 87081; 87340; 88305; 88312; 88313; 93005; C9113; G0378; J0696; J0885; J2704; J2916; J3490; J7030; J7040; J7050; P9016